=== PATIENT | female | born 1955 | race Caucasian/White ===

== ENCOUNTER 2018-11-11 13:10 | Inpatient (IN) | payer OTHER ==
[~2018-11-11] VITALS: Ht 154.9 cm; Wt 131.1 kg
--- NOTE | ~2018-11-11 | PR ---
[place], [place] PROGRESS NOTE NAME: AHMET LICEA UNIT #: [id number] ROOM: 411 DOCTOR: ELIZABETH BERTRAND MD,SAMANTA BIRTHDATE: [birth year] DOS: 11/14/2018 SUBJECTIVE: The patient seen and examined on 11/14/2018. She had a bronchoscopy done yesterday. The symptoms of cough have been decreased, but not completely resolved. The cough has been noted with small [place] expectoration in to chest. Shortness breath and wheezing, was improving. There was no chest pain. OBJECTIVE: VITAL SIGNS: Normal temperature, respiratory rate of 20, heart rate 70, blood pressure 156/67 in the afternoon. HEENT: Chronic obesity. Head was atraumatic. Eyes nonicterus. NECK: Supple. CARDIOVASCULAR: S1, S2 is audible. LUNGS: The patient was noted with decreased breath sounds bilaterally. Occasional wheezing. There were no crackles. ABDOMEN: Soft, obese, nontender. Bowel sounds present. EXTREMITIES: No acute edema. LABORATORY DATA: Culture of the bronchial washing preliminary noted with light growth of gram-negative bacilli, pending identification sensitivities. IMPRESSION: Acute exacerbation of chronic obstructive pulmonary disease, with coughing with gram-negative infection, pending identification sensitivities. PLAN OF TREATMENT: No change in antibiotic, monitor culture results, adjust the antibiotic tomorrow. Possible discharge consideration in the morning depends on the organism identification, therefore, could be treated with oral antibiotics. SAMANTA JOHNSON MD CM:PNTRANS [id number] SAMANTA BERTRAND MD 11/15/18 2313 interface
--- NOTE | ~2018-11-11 | PR ---
[place], [place] PROGRESS NOTE NAME: AHMET LICEA UNIT #: [id number] ROOM: 411 DOCTOR: ELIZABETH BERTRAND MD,SAMANTA BIRTHDATE: [birth year] DOS: 11/15/2018 SUBJECTIVE: She has been noted with partial reduction in the cough but still noted with incomplete resolution. The cough has been noted with small expectoration, shortness of breath has improved significantly. There were no symptoms of chest pain, fever or chills. OBJECTIVE: VITAL SIGNS: For the patient, which are recorded shows a normal temperature, respiratory rate 18, heart rate 71, blood pressure 144/57. The pulse oxygen saturation on room air 95% saturation. Chronic obesity. HEENT: Examination shows head was atraumatic. Eyes nonicterus. LUNGS: Noted free of any wheezing or crackles this morning. ABDOMEN: Soft, nontender. Bowel sounds present. EXTREMITIES: No acute edema. LABORATORY DATA: Culture of the bronchial washing was noted with light growth of Pseudomonas aeruginosa, which noted pansensitive organism including to fluoroquinolones. IMPRESSION: 1. The patient who has been currently noted stable at the present time with Pseudomonas aeruginosa. 2. The patient with a history of sarcoidosis. 3. Resolving bronchial asthma. PLAN OF TREATMENT: Oral corticosteroids, order fluoroquinolone for the patient as well upon discharge ciprofloxacin for 10 days. Outpatient followup to be scheduled in the office. SAMANTA JOHNSON MD CM:PNTRANS [id number] SAMANTA BERTRAND MD 11/15/18 2310 interface
--- NOTE | ~2018-11-11 | CON ---
[place], [place] REPORT OF CONSULTATION NAME: AHMET LICEA UNIT #: [id number] ROOM: 411 DOCTOR: SAMANTA MOTLEY MD BIRTHDATE: [birth year] DOS: 11/12/2018 REASON FOR CONSULTATION: Assess the patient for nonresolving exacerbation of bronchial asthma. HISTORY OF PRESENT ILLNESS: This is a 63-year-old white female patient with known history of pulmonary sarcoidosis with sleep apnea disorder and uncomplicated moderate persistent bronchial asthma, seen in my office on 10/29/2018. The patient has been reported ongoing respiratory symptom for the past several days. The symptoms have been noted excessive chest congestion, coughing, and wheezing and tightness in the chest. Shortness of breath was occurring with exertion. She has been seen in the office, was started on oral antibiotics as well as tapering prednisone and nebulized bronchodilators. The patient was also started on Mucinex. The cough has been noted severe, nonproductive. She has been taking the medication stated that symptoms have not been resolving. The patient continued to have similar symptoms with only partial improvement in the symptom. She came into the Emergency Room where she has been assessed and being hospitalized in the hospital for further medical management. The patient was still complaining of similar symptoms as previously noted on admission. Denies symptoms of chest pain, fever or chills. REVIEW OF SYSTEMS: CONSTITUTIONAL: Fatigue and tiredness reported. Denies symptoms of fever or chills. EYES: Denies any burning, redness, or tenderness. EAR, NOSE, THROAT SYMPTOMS: Denies sore throat, hoarseness, otalgia, postnasal drainage or epistaxis. CARDIOVASCULAR SYSTEM: Denies angina pain, edema, and pain of the lower extremities. GASTROINTESTINAL SYMPTOMS: Dysphagia, nausea, vomiting, diarrhea, abdominal pain, hematemesis, melena, or hematochezia. SKIN: Denies abnormal lesions or rashes. MUSCULOSKELETAL SYMPTOMS: No acute joint pain, redness, tenderness. CENTRAL NERVOUS SYSTEM: Denies symptoms of headache, diplopia or syncopal episodes. Remaining systems were reviewed with the patient, they were noted all negative. PAST MEDICAL HISTORY: 1. Uncomplicated moderate persistent bronchial asthma. 2. Gastroesophageal reflux. 3. Morbid obesity. 4. Hypothyroidism. 5. Sarcoidosis diagnosis was established in 2006 with mediastinoscopy. 6. Anxiety disorder. 7. Neurotic depression. 8. Intervertebral disk disease. 9. Restless legs syndrome. 10. Obstructive sleep apnea disorder. 11. History of congestive heart failure, diastolic dysfunction. [place], [place] REPORT OF CONSULTATION NAME: AHMET LICEA UNIT #: [id number] ROOM: [facility] DOCTOR: SAMANTA MOTLEY MD BIRTHDATE: [birth year] 12. Hypercholesterolemia. 13. Hypothyroidism. SOCIAL HISTORY: She is , has 2 children, and lives at home. Denies alcohol or illicit drug use or any tobacco use. PAST SURGICAL HISTORY: 1. Reported as mediastinoscopy on 05/09/2007. 2. Right total knee replacement. 3. Laparoscopic cholecystectomy. FAMILY HISTORY: Father at age of 80 due to complication of myocardial infarction. Mother living, 70 years old with history of cancer. CURRENT MEDICATIONS: Administered started from yesterday use of Lovenox for DVT prophylaxis, Tessalon Perles, Solu-Medrol 40 mg every 8 hours, DuoNeb every 4 hours, Zithromax, Rocephin and other p.r.n. medications. DRUG ALLERGIES: The patient noted as no known drug allergies. PHYSICAL EXAMINATION: GENERAL: This is a 63-year-old female who was noted currently awake and alert without acute distress. Height of 5 feet 1 inch, weight of 289 pounds, BMI 54.6. VITAL SIGNS: Normal temperature, respirations 18-20, heart rate of 92-105, blood pressure 130/52-128/72. Pulse oxygen saturation recorded as 94% on half liter nasal cannula. HEAD, EYES, EARS, NOSE, AND THROAT: Chronic obesity. Head was atraumatic. Eyes nonicterus. NECK: Supple. CARDIOVASCULAR SYSTEM: S1, S2 audible. LUNGS: Noted without any crackles. Expiratory wheezing. Breaths are normal. Moderate decreased. ABDOMEN: Soft with chronic obesity. Bowel sounds present. EXTREMITIES: Without acute edema. MUSCULOSKELETAL: Noted without any acute deformities. CENTRAL NERVOUS SYSTEM: Cranial nerves 2-12 were intact. LABORATORY AND DIAGNOSTIC DATA: The lactic acid yesterday noted normal. CBC that was done yesterday noted as normal CBC excep eosinophils of 5.3%. PT/PTT were normal. CMP of 11/11/2018, normal BUN and creatinine. D-dimer minimally elevated at 6.9 yesterday. Chest x-ray does not show any acute pulmonary infiltration yesterday. Influenza A and B, nasal washing antigen negative. CBC this morning noted a normal CBC. BMP this morning, glucose 207, BUN normal, creatinine was normal. CT of the chest that was done yesterday does not show any acute pulmonary infiltration as well. There was no evidence of pulmonary embolism. CTA the chest was done in the Emergency Room. Assessment of the mediastinal window was noted with lymphadenopathy with known diagnosis of sarcoidosis, but they were not noted large. [place], [place] REPORT OF CONSULTATION NAME: AHMET LICEA UNIT #: [id number] ROOM: 411 DOCTOR: SAMANTA MOTLEY MD BIRTHDATE: [birth year] IMPRESSION: 1. The patient will be currently admitted to the hospital noted failed outpatient treatment for acute exacerbation of bronchial asthma, noted with eosinophilic type bronchial asthma with nonresolving respiratory symptoms suspicion of obstruction of the mucus plug in the lungs that has not been improving. Possibly superimposed acute bacterial infection not responding to treatment would be considered as well. 2. Chronic morbid obesity. 3. History of sarcoidosis. 4. Obstructive sleep apnea disorder. 5. Restless legs syndrome. 6. Congestive heart failure, diastolic dysfunction. PLAN OF MANAGEMENT: Continue bronchodilators, oxygen supplementation and antibiotics at this time as in progress. Therapeutic bronchoscopy was assessed and planned to be done tomorrow morning. Bronchodilators otherwise to be continued same frequency. Oxygen supplementation necessary. Maintain pulse ox 92% or greater. She could use her CPAP from the home for the management of sleep apnea disorder. All other previous treatment with additional change in treatment recommended based on progression of the illness. Sarcoidosis is asymptomatic and not in acute disease at this time. Thanks for allowing me to participate in care of this patient. SAMANTA JOHNSON MD CM:CONSTR:REPORT OF CONSULTATION 1047 11/12/18 1301 interface
--- NOTE | ~2018-11-11 | EKG ---
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
--- NOTE | ~2018-11-11 | PR ---
[place], [place] PROGRESS NOTE NAME: AHMET LICEA UNIT #: [id number] ROOM: 411 DOCTOR: ELIZABETH BERTRAND MDSAMANTA BIRTHDATE: [birth year] DOS: 11/13/2018 PULMONARY PROGRESS NOTE SUBJECTIVE: The patient was noted comfortable at this time, resting on the bed. She is n.p.o. past night for bronchoscopy, still noted a cough, which remains persistent. She was complaining as well. Denies symptoms of fever or chills. Denies symptoms of hemoptysis, nausea, vomiting, diarrhea or any abdominal pain. Denies symptoms of fever or chills. Denies any symptoms of edema or pain of the lower extremities. The remaining systems reviewed, there was noted all negative. OBJECTIVE: VITAL SIGNS: For the patient, which have been recorded shows the blood pressure as 129/65, heart rate of 76-103, respiratory rate 20-18, temperature normal. HEENT: Examination shows head was atraumatic. Eyes nonicterus. NECK: Supple. CARDIOVASCULAR: S1, S2 is audible. LUNGS: The patient was noted with decreased breath sounds with the expiratory wheezing. There were no crackles. ABDOMEN: Soft and obese. EXTREMITIES: Noted chronic obesity. VISIBLE SKIN: No lesions or rashes. MUSCULOSKELETAL: Without acute deformities. CENTRAL NERVOUS SYSTEM: Cranial nerves 2-12 intact. LABORATORY DATA: Culture of the urine showed no bacterial growths. Echocardiogram of the patient was also performed yesterday. The assessment was done by Dr. Quintanilla. It shows left ventricular ejection fraction of 65%-70% with grade 1 diastolic dysfunction. IMPRESSION: 1. Ongoing acute exacerbation of bronchial asthma, acute bronchitis, nonproductive cough, not resolving. History of sarcoidosis. Mild diastolic dysfunction was noted for the patient with echocardiogram. 2. The patient with morbid obesity. 3. History of sarcoidosis as well. PLAN OF THERAPY: Proceed with fibrobronchoscopy. No changes in the medical plan of management at this time. Continue current dose of plan for this patient as previously with steroids, bronchodilators, and other therapies. Additional treatment changes will be ordered based on the progression of the illness. [place], [place] PROGRESS NOTE NAME: AHMET LICEA UNIT #: [id number] ROOM: 411 DOCTOR: SAMANTA MOTLEY MD BIRTHDATE: [birth year] SAMANTA JOHNSON MD CM:PNTRANS [id number] SAMANTA BERTRAND MD 11/25/18 1045 interface
--- NOTE | ~2018-11-11 | PROC NOTE ---
[place], [place] PROCEDURE NOTE NAME: AHMET LICEA UNIT #: [id number] ROOM: 411 DOCTOR: ELIZABETH BERTRAND MD,SAMANTA BIRTHDATE: [birth year] DOS: 11/13/2018 PROCEDURE: Bronchoscopy. PREOPERATIVE DIAGNOSES: Persistent nonresolving cough with maximum medical management, history of bronchial asthma, sarcoidosis. POSTOPERATIVE DIAGNOSES: The patient with acute tracheobronchitis, mild impaction of mucus cleared in endobronchial tree bilaterally. PROCEDURE DESCRIPTION: Informed consent obtained from the patient. She was brought to the OR and placed in supine position. Conscious sedation administered by Anesthesia Department. After achieving proper sedation, airway introduced in the mouth. Bronchoscope advanced to the airway into laryngeal area. Epiglottis and vocal cord seen. Vocal cord was moving symmetrical movements. Bronchoscope advanced to vocal cord and tracheal lumen. The tracheal lumen was noted without any acute abnormality except small amount of secretion present, which was mucoid suctioned out clearly with the help of normal saline. The colby noted sharp. The right upper, right middle, right lower, left upper, lingula, lower lobe bronchi were all examined. The mucus was present small amount. The patient endobronchial tree bilaterally suctioned out with normal saline wash. Procedure was tolerated by the patient except transient hypoxia, treated with withdrawal of the bronchoscope and additional supplementation of oxygen. SAMANTA JOHNSON MD CM:PROCNOTE:PROCEDURE NOTE 1035 [id number] SAMANTA BERTRAND MD
[2018-11-11 13:11] VITALS: BP 130/62
[2018-11-11 14:16] LABS: BASO # 0.1 10*3/uL (0.0-0.1); BASO % 0.7 % (0.0-1.0); EOS # 0.4 10*3/uL (0.0-0.4); EOS % 5.3 % (1.0-4.0); HEMATOCRIT 39.8 % (37.0-47.0); HEMOGLOBIN 12.9 g/dl (12.0-16.0); LYMPH # 1.2 10*3/uL (1.3-4.4); LYMPH % 17.6 % (27.0-41.0); MEAN CELL VOLUME 92.8 fl (81.0-99.0); MEAN CORPUSCULAR HGB 30.1 pg (27.0-31.0); MEAN CORPUSCULAR HGB CONC 32.4 g/dl (33.0-37.0); MEAN PLATELET VOLUME 10.4 fl (9.6-12.3); MONO # 0.5 10*3/uL (0.1-1.0); NEUT # 4.9 10*3/uL (2.3-7.9); NEUT % 69.3 % (47.0-73.0); PLATELET COUNT AUTOMATED 186 10*3/uL (130-400); RED BLOOD COUNT 4.29 10*6/uL (4.10-5.10); RED CELL DISTRI WIDTH 14.6 % (0-14.5)
[2018-11-11 14:26] LABS: ACT PARTIAL THROMBO TIME 25.2 SECONDS (20.8-31.5)
[2018-11-11 14:34] LABS: ALBUMIN 3.3 gm/dl (3.1-4.5); ALKALINE PHOSPHATASE 56 U/L (45-117); BUN 18 mg/dl (7-24); CHLORIDE 111 mmol/L (98-107); CREATININE 0.92 mg/dL (0.55-1.02); POTASSIUM 4.2 mmol/L (3.5-5.1); SGOT/AST 23 IU/L (3-35); SGPT/ALT 26 U/L (12-78); SODIUM 142 mmol/L (136-145); TOTAL PROTEIN 7.3 gm/dL (6.4-8.2)
[2018-11-11 14:35] LABS: TROPONIN I < 0.015 ng/ml (<0.045)
[2018-11-11 15:11] VITALS: BP 128/72
[2018-11-11 15:32] LABS: BILIRUBIN NEGATIVE (NEGATIVE); BLOOD NEGATIVE (NEGATIVE); CLARITY CLEAR (CLEAR); COLOR YELLOW (YELLOW); GLUCOSE NEGATIVE (NEGATIVE); KETONE NEGATIVE (NEGATIVE); LEUKO ESTERASE NEGATIVE (NEGATIVE); NITRITE NEGATIVE (NEGATIVE); UROBILINOGEN 0.2 E.U./dl (0.2-1.0)
[2018-11-11 15:37] LABS: RBC 0-2 rbc/hpf (0-2); WBC 0-2 wbc/hpf (0-5)
[2018-11-11 15:38] LABS: BACTERIA 1+; MUCOUS TRACE
--- NOTE | 2018-11-11 15:52 | NUR ---
PT LEFT UNIT WITH TECH VIA CART FOR CTA OF CHEST.
--- NOTE | 2018-11-11 18:40 | NUR ---
A 63, admitted to , under the services of XOCHITL Villa DO with a diagnosis of COPD EXACERBATION. Chief complaint is SON. Patient arrived via bed from ER. Monitor applied. Initial assessment completed. Vital signs taken and recorded. XOCHITL VILLA DO notified of admission to the unit. Orders received. See assessment for past medical history, medications and allergies. Patient and/or family oriented to unit. [facility] visitation policy reviewed. Clothing/patient valuable form completed. LANNY LARIOS
[2018-11-11 18:43] VITALS: BP 132/68
[2018-11-11] MEDS ORDERED: Ventolin 02.5 MG/3 M INH (18:59)
[2018-11-11] MEDS ORDERED: Percocet 325 MG1 TAB PO (18:59)
[2018-11-11] MEDS ORDERED: ROPINIROLE HYDRO3 MG PO (19:00)
[2018-11-11] MEDS ORDERED: TOPIRAMATE50 M2 PO (19:00)
[2018-11-11] MEDS ORDERED: LOSARTAN POTAS100 M1 PO (19:00)
[2018-11-11] MEDS ORDERED: PROPRANOLOL HCL10 MG PO (19:01)
[2018-11-11] MEDS ORDERED: MAGNESIUM OXID400 MG PO (19:01)
[2018-11-11] MEDS ORDERED: LEVOTHYROXINE150 MCG PO (19:01)
[2018-11-11] MEDS ORDERED: GABAPENTIN400 MG PO (19:02)
[2018-11-11] MEDS ORDERED: MELOXICAM15 MG PO (19:02)
[2018-11-11] MEDS ORDERED: TRAZODONE100 MG PO (19:03)
[2018-11-11] MEDS ORDERED: SERTRALINE HYD100 MG PO (19:03)
[2018-11-11] MEDS ORDERED: METFORMIN HYDR500 MG PO (19:03)
[2018-11-11] MEDS ORDERED: IRON325 M1 PO (19:05)
[2018-11-11] MEDS ORDERED: ALDACTONE50 M1 PO (19:05)
--- NOTE | 2018-11-11 19:15 | NUR ---
MED REC VERIFIED WITH PATIENT AND UPDATED PER PT LIST
--- NOTE | 2018-11-11 19:23 | NUR ---
ATTEMPTED TO CALL ELIZABETH WITH NEW CONSULT. NO ANSWER WILL RETRY.
--- NOTE | 2018-11-11 19:25 | NUR ---
DR. JOHNSON CALLED BACK. NO NEW ORDERS RECEIVED.
[2018-11-11 20:00] VITALS: BP 124/54
--- NOTE | 2018-11-11 21:37 | NUR ---
PATIENT C/O HEADACHE. MEDICATED WITH PRN TYLENOL. RATES 05/24. WILL CHECK EFFECTIVENESS.
[2018-11-12] VITALS: BP 106/42
--- NOTE | 2018-11-12 00:15 | NUR ---
ADAM C/O SOB AT REST. PULSE OX 88-89% ON RA. PUT ON 2.5L NC. PATIENT IS NOW STATING 96%.
[2018-11-12 04:42] LABS: BASO % 0.2 % (0.0-1.0); EOS % 0.2 % (1.0-4.0); HEMATOCRIT 39.8 % (37.0-47.0); HEMOGLOBIN 12.3 g/dl (12.0-16.0); LYMPH # 0.4 10*3/uL (1.3-4.4); LYMPH % 7.9 % (27.0-41.0); MEAN CELL VOLUME 93.2 fl (81.0-99.0); MEAN CORPUSCULAR HGB 28.8 pg (27.0-31.0); MEAN CORPUSCULAR HGB CONC 30.9 g/dl (33.0-37.0); MEAN PLATELET VOLUME 10.6 fl (9.6-12.3); MONO # 0.1 10*3/uL (0.1-1.0); MONO % 1.6 % (3.0-9.0); NEUT % 89.6 % (47.0-73.0); PLATELET COUNT AUTOMATED 171 10*3/uL (130-400); RED BLOOD COUNT 4.27 10*6/uL (4.10-5.10); RED CELL DISTRI WIDTH 14.5 % (0-14.5); WHITE BLOOD COUNT 5.6 10*3/uL (4.8-10.8)
[2018-11-12 05:11] LABS: BUN 19 mg/dl (7-24); CHLORIDE 110 mmol/L (98-107); CHOLESTEROL 156 mg/dL (<200); CREATININE 1.06 mg/dL (0.55-1.02); FREE T4 1.08 ng/dl (0.76-1.46); HDL CHOLESTEROL 53 mg/dl (40-60); LDL CHOLESTEROL 85 mg/dL (9-159); PHOSPHOROUS 2.7 mg/dL (2.5-4.9); POTASSIUM 4.2 mmol/L (3.5-5.1); SODIUM 142 mmol/L (136-145); TRIGLYCERIDES 91 mg/dl (<150); VLDL CHOLESTEROL 18 mg/dL (6-40)
[2018-11-12 05:17] LABS: THYROID STIM HORMONE (HS) 0.112 uIU/ml (0.358-4.75)
[2018-11-12 06:54] LABS: VITAMIN D, 25-HYDROXY 16.5 ng/mL (30-100)
[2018-11-12 08:00] VITALS: BP 130/52
--- NOTE | 2018-11-12 09:32 | NUR ---
DR. CARDENAS NOTIFIED THAT PATIENTS MED REQ IS UPDATED.
[2018-11-12 12:00] VITALS: BP 146/70
[2018-11-12 16:00] VITALS: BP 134/69
[2018-11-12 20:00] VITALS: BP 121/54
[2018-11-13] VITALS (8 sets, daily range): BP systolic 100–154; BP diastolic 54–94
--- NOTE | 2018-11-13 00:25 | NUR ---
[facility] CALLED STATING THEY HAVE A ORDER TO READ THE CONTRAST ECHO. PER DR. LUNA ECHO HAS ALREADY BEEN READ BY DR. REYEZ AND DOES NOT NEED READ.
--- NOTE | 2018-11-13 01:33 | NUR ---
24 HR chart check completed.
--- NOTE | 2018-11-13 11:05 | NUR ---
Lead Game Designer in to talk to patient. Patient states lives at home with . There are few steps in the home. Physician: sandoval bonds Pharmacy: [facility] services: none Patient's level of ADLs: MINIMAL ASSIST Patient has working utilities: all working DME: cpap Follow-up physician's appointment after d/c: will be made by hospitalist nurse director upon discharge Does patient want to access PORTAL?: no Discharge plan discussed with patient, patient lives at home. she states she gets around fine, patient states she will be going home when able. discussed with her VNA and she declines any services at this time, case management will follow. AARON MILLER
[2018-11-13 15:08] LABS: MYCOPLASMA PNEUMONIAE IGG 112 U/mL (0-99); MYCOPLASMA PNEUMONIAE IGG <100 U/mL (0-99); MYCOPLASMA PNEUMONIAE IGM <770 U/mL (0-769)
--- NOTE | 2018-11-13 20:08 | NUR ---
pt complain of generalized pain, tylenol given.
[2018-11-14] VITALS: BP 141/75
--- NOTE | 2018-11-14 04:43 | NUR ---
24 HR chart check completed.
--- NOTE | 2018-11-14 05:35 | NUR ---
PATIENT MEDICATED WITH TESSALON PEARLES FOR COUGH. WILL MONITOR FOR EFFECTIVENESS. CALL LIGHT IN REACH.
[2018-11-14 08:00] VITALS: BP 136/68
--- NOTE | 2018-11-14 09:00 | NUR ---
case management visits with patient, patient states she is feeling somewhat better, she states she will be going home when able and denies any home needs
[2018-11-14 12:00] VITALS: BP 143/66
--- NOTE | 2018-11-14 15:10 | NUR ---
DR CARDENAS NOTIFIED OF C/O BACK PAIN AND REQUESTING PERCOCET. THIS NURSE NOTIFIED HE THAT IT IS ORDERED BID AND FIRST DOSE WAS GIVEN AT 9AM. HE STATES OK TO GIVE 2ND DOSE NOW.
--- NOTE | 2018-11-14 15:28 | NUR ---
MEDICATED WITH PERCOCET PER PRN ORDER FOR COMPLAINTS OF 9/10 BACK AND NECK PAIN. WILL MONITOR FOR EFFECTIVENESS.
[2018-11-14 16:00] VITALS: BP 144/87
[2018-11-14 16:09] LABS: ACID FAST SPEC PROCESSING Concentration (.)
[2018-11-14 20:00] VITALS: BP 156/87
--- NOTE | 2018-11-14 22:01 | NUR ---
PT C/O HEADACHE AND COUGH. TYLENOL AND TESSALON PERLES GIVEN AT THIS TIME. WILL MONITOR FOR EFFECTIVENESS. ALL OTHER HS MEDICATION TAKEN WITH EASE BY PT. BLOOD SUGAR OBTAINED, 127. NO COVERAGE GIVEN PER ORDERS. RESPIRATIONS EASY AND UNLABORED ON ROOM AIR. CALL LIGHT IN REACH.
--- NOTE | 2018-11-14 23:00 | NUR ---
TYLENOL AND TESSALON PERLES EFFECTIVE PER PT.
[2018-11-15] VITALS: BP 135/54
[2018-11-15 00:05] LABS: PARAINFLUENZA 3 CF 1:32 (Neg:<1:8)
[2018-11-15 06:51] LABS: BASO % 0.1 % (0.0-1.0); EOS % 0.3 % (1.0-4.0); HEMATOCRIT 40.7 % (37.0-47.0); HEMOGLOBIN 13.2 g/dl (12.0-16.0); LYMPH # 1.2 10*3/uL (1.3-4.4); LYMPH % 11.8 % (27.0-41.0); MEAN CELL VOLUME 91.1 fl (81.0-99.0); MEAN CORPUSCULAR HGB 29.5 pg (27.0-31.0); MEAN CORPUSCULAR HGB CONC 32.4 g/dl (33.0-37.0); MEAN PLATELET VOLUME 10.4 fl (9.6-12.3); MONO # 0.6 10*3/uL (0.1-1.0); MONO % 5.7 % (3.0-9.0); NEUT # 8.1 10*3/uL (2.3-7.9); NEUT % 81.3 % (47.0-73.0); PLATELET COUNT AUTOMATED 183 10*3/uL (130-400); RED BLOOD COUNT 4.47 10*6/uL (4.10-5.10); WHITE BLOOD COUNT 9.9 10*3/uL (4.8-10.8)
[2018-11-15 07:00] LABS: CREATININE 0.87 mg/dL (0.55-1.02)
[2018-11-15 08:00] VITALS: BP 151/82
--- NOTE | 2018-11-15 09:00 | NUR ---
case mangement visits with patient, patient denies any home needs
[2018-11-15 12:00] VITALS: BP 133/56; BP 144/57
[2018-11-15] MEDS ORDERED: CIPRO500 MG PO (13:37)
[2018-11-15] MEDS ORDERED: ROBITUSSIN DM 101 OZ PO (13:37)
--- NOTE | 2018-11-15 13:48 | NUR ---
[facility] Discharge instructions reviewed with patient/family. Patient receptive and verbalizes understanding. Follow-up care arranged. Written instructions given to patient/family. LAURIE BILLS
[2018-12-25 09:07] LABS: ACID FAST CULTURE Negative (.)
== END 2018-11-15 13:45 | disposition home or self-care (01) | DRG 190 ==
LOC: ED 13:10 → 4E 18:09 → EDHOLD 18:09 → 4E 18:26
PROVIDERS: Emergency Medicine; Internal Medicine; Internal Medicine Critical Care Medicine; ADMIT Internal Medicine
PROC: 0BC98ZZ Extirpation of Matter from Lingula Bronchus, Via Natural or Artificial Opening Endoscopic (ICD-10-PCS; principal; 2018-11-13)
PROC: 0BC48ZZ Extirpation of Matter from Right Upper Lobe Bronchus, Via Natural or Artificial Opening Endoscopic (ICD-10-PCS; 2018-11-13)
PROC: 0BC88ZZ Extirpation of Matter from Left Upper Lobe Bronchus, Via Natural or Artificial Opening Endoscopic (ICD-10-PCS; 2018-11-13)
PROC: 0BC58ZZ Extirpation of Matter from Right Middle Lobe Bronchus, Via Natural or Artificial Opening Endoscopic (ICD-10-PCS; 2018-11-13)
PROC: 0BC38ZZ Extirpation of Matter from Right Main Bronchus, Via Natural or Artificial Opening Endoscopic (ICD-10-PCS; 2018-11-13)
PROC: 0BC68ZZ Extirpation of Matter from Right Lower Lobe Bronchus, Via Natural or Artificial Opening Endoscopic (ICD-10-PCS; 2018-11-13)
PROC: 0BCB8ZZ Extirpation of Matter from Left Lower Lobe Bronchus, Via Natural or Artificial Opening Endoscopic (ICD-10-PCS; 2018-11-13)
PROC: 0BC18ZZ Extirpation of Matter from Trachea, Via Natural or Artificial Opening Endoscopic (ICD-10-PCS; 2018-11-13)
DX: J44.1 Chronic obstructive pulmonary disease with (acute) exacerbation (principal); J18.9 Pneumonia, unspecified organism; J45.901 Unspecified asthma with (acute) exacerbation; E44.0 Moderate protein-calorie malnutrition; D68.9 Coagulation defect, unspecified; I50.30 Unspecified diastolic (congestive) heart failure; T17.490A Other foreign object in trachea causing asphyxiation, initial encounter; Z68.43 Body mass index [BMI] 50.0-59.9, adult; J44.0 Chronic obstructive pulmonary disease with (acute) lower respiratory infection; K31.84 Gastroparesis; E66.01 Morbid (severe) obesity due to excess calories; Z88.5 Allergy status to narcotic agent; F41.9 Anxiety disorder, unspecified; M47.9 Spondylosis, unspecified; K21.9 Gastro-esophageal reflux disease without esophagitis; G25.81 Restless legs syndrome; D86.9 Sarcoidosis, unspecified; G47.33 Obstructive sleep apnea (adult) (pediatric); Z83.3 Family history of diabetes mellitus; Z82.49 Family history of ischemic heart disease and other diseases of the circulatory system; E11.43 Type 2 diabetes mellitus with diabetic autonomic (poly)neuropathy; E55.9 Vitamin D deficiency, unspecified; J20.9 Acute bronchitis, unspecified; I11.0 Hypertensive heart disease with heart failure; E78.00 Pure hypercholesterolemia, unspecified; Z90.49 Acquired absence of other specified parts of digestive tract; Z96.651 Presence of right artificial knee joint; X58.XXXA Exposure to other specified factors, initial encounter; Y93.89 Activity, other specified; Y92.89 Other specified places as the place of occurrence of the external cause; Y99.8 Other external cause status; Z79.84 Long term (current) use of oral hypoglycemic drugs

== ENCOUNTER 2019-03-13 11:24 | Inpatient (IN) | payer OTHER ==
[2019-03-13] VITALS (9 sets, daily range): BP systolic 135–175; BP diastolic 55–97
[~2019-03-13] VITALS: Ht 154.9 cm; Wt 126.6 kg
--- NOTE | ~2019-03-13 | CON ---
[place], [place] REPORT OF CONSULTATION NAME: AHMET LICEA UNIT #: [id number] ROOM: 416 DOCTOR: ELIZABETH BERTRAND MDSAMANTA BIRTHDATE: [birth year] DOS: 03/13/2019 PULMONARY CONSULTATION, EVALUATION AND MANAGEMENT The patient is independently seen and examined in jnkh-kg-[id number] encounter. History was confirmed. Physical examination was performed. Labs were reviewed independently. The radiology data was also reviewed. Note done by the medical manager was approved. Assessment and management for today's visit was personally completed. HISTORY OF PRESENT ILLNESS: The patient presented to the Emergency Room as the patient has been noted with increased respiratory symptoms that started about 2 weeks ago. She has contacted my office and was prescribed Zithromax for acute bronchitis symptoms as an outpatient. The patient has taken the medication. The patient stated it has not been working, with increased respiratory symptoms reported. The cough has been noted with progressive increase. The cough is noted as dry. She also reported symptoms of increased shortness of breath, tightness in the chest, and wheezing. There were no symptoms of chest pain reported. The symptoms have been noted with gradual progression. There were no symptoms of hemoptysis reported. The patient was also stating temperature elevation to 101 degrees Fahrenheit as well. REVIEW OF SYSTEMS: Completed by the medical manager as well. EXTREMITIES: Edema of the lower extremities noted as 2+ bilaterally. CARDIOVASCULAR: There were no symptoms of palpitation reported. No symptoms of anginal pain. PAST MEDICAL HISTORY: 1. Uncomplicated moderate persistent bronchial asthma. 2. Gastroesophageal reflux. 3. Morbid obesity. 4. Sarcoidosis, 2007, lymph node enlargement. 5. Hypothyroidism. 6. General anxiety disorder. 7. Neurotic depression. 8. Intervertebral disc disease. 9. Restless legs syndrome. 10. Obstructive sleep apnea disorder with nonadherence with treatment. 11. Congestive heart failure, diastolic dysfunction. 12. Hypercholesterolemia. PAST SURGICAL HISTORY: 1. Mediastinoscopy on 05/09/2007. 2. Right total knee replacement. 3. Laparoscopic cholecystectomy. SOCIAL HISTORY: The patient is , has 2 children, lives at home. Denies history of alcohol use or illicit drug use. FAMILY HISTORY: Father passed at the age of 8080 years old with complications of [place], [place] REPORT OF CONSULTATION NAME: AHMET LICEA UNIT #: [id number] ROOM: [facility] DOCTOR: ELIZABETH BERTRAND MD,SAMANTA BIRTHDATE: [birth year] myocardial infarction. Mother is living, 70 years old, with a history of cancer. MEDICATIONS: Which were currently administered are use of the Lovenox for DVT prophylaxis, Solu-Medrol 40 mg q. eight hours, DuoNeb q. six hours, Zithromax, IV Rocephin, and other p.r.n. meds. DRUG ALLERGY HISTORY: NOTED : 1. MORPHINE, CAUSING HIVES. 2. CYMBALTA, WITH DISORIENTATION. PHYSICAL EXAMINATION: GENERAL: A 64-year-old white female patient, currently noted to be awake and alert this morning of assessment. Height was 5 feet 1 inch, weight of 279 pounds, BMI 52.7. VITAL SIGNS: Normal temperature, respiratory rate ranging between 16-26, heart rate 78-87, blood pressure 175/87-162/90. Pulse oxygen saturation at rest on room air was 93% saturation. HEENT: Examination shows head is atraumatic. Eyes nonicterus. Severe decreased oropharyngeal space, high tongue base, crowding of soft tissue structures. NECK: Supple. CARDIOVASCULAR: S1 and S2 is audible. LUNGS: Noted with bilateral diffuse expiratory wheezing was noted. ABDOMINAL: Chronic obesity. Bowel sounds present. No tenderness. EXTREMITIES: Noted with 2+ pitting edema. VISIBLE SKIN: No lesions or rashes. CENTRAL NERVOUS SYSTEM: Cranial nerves 2 through 12 intact. No focal deficit. MUSCULOSKELETAL: Without any acute deformities. LABORATORY DATA: CBC that was noted of 03/13/2019 - WBC count 12.8, hemoglobin and hematocrit normal, platelet count normal. PT/INR noted as normal. CMP that was done on 03/13/2019 - BUN 29, creatinine 1.07. CMP noted as normal. Arterial blood gas that was done today - pH of 7.38, pCO2 of 35, pO2 of 63 after my initial assessment. Troponin noted as normal. DIAGNOSTIC DATA: Chest x-ray, 2-view, which was done in the Emergency Room, reviewed from the PACS images, noted without any acute abnormalities. IMPRESSION: The patient who has been currently admitted to the hospital noted with: 1. Acute exacerbation of bronchial asthma, failed outpatient treatment. 2. The patient with obstructive sleep apnea, nonadherence with treatment. 3. Congestive heart failure, diastolic or systolic dysfunction at this time was unknown. 4. The patient with chronic obesity. 5. History of sarcoidosis, which is noted stable and in remission at the present time and inactive. 6. Multiple other medical problems as noted in past history. [place], [place] REPORT OF CONSULTATION NAME: AHMET LICEA UNIT #: [id number] ROOM: 416 DOCTOR: ELIZABETH BERTRAND MD,SAMANTA BIRTHDATE: [birth year] PLAN OF MANAGEMENT: The patient agreed to use the CPAP/BiPAP from home at nighttime. She would be continued on Solu-Medrol. The patient will be ordered a diuretic for improvement of the edema of the lower extremities. The bronchodilators to be continued. Obtain an echocardiogram to assess the cardiovascular functions. Other additional treatment changes will be made based on progression of the illnesses. Thank you for allowing me to participate in the care of this patient. SAMANTA JOHNSON MD CM:CONSTR:REPORT OF CONSULTATION 20 03/14/19 0806 interface
--- NOTE | ~2019-03-13 | EKG ---
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
--- NOTE | ~2019-03-13 | CON ---
[place], [place] REPORT OF CONSULTATION NAME: AHMET LICEA UNIT #: [id number] ROOM: 416 DOCTOR: SHANNAN CLINE DO BIRTHDATE: [birth year] DOS: 03/13/2019 PULMONARY CONSULTATION NOTE REASON FOR CONSULTATION: Exacerbation of bronchial asthma. The consultation was requested by the hospitalist service. HISTORY OF PRESENT ILLNESS: A 64-year-old female with known history of pulmonary sarcoidosis and sleep apnea. The patient states that she has been short of breath since 03/01/2019. The patient states that she was given azithromycin and steroids. The patient states that this has not helped. The patient states that she has a productive cough with green sputum. The patient states she has felt sweaty and warm during this time and reports a fever at home of 101 degrees Fahrenheit. The patient denies any hemoptysis. The patient states that her bilateral lower extremities have been swelling more over the past few days. The patient denies any chest pains, nausea or vomiting. REVIEW OF SYSTEMS: GENERAL: The patient reports fevers. Denies chills, weight loss or weight gain. HEENT: The patient denies vision changes, throat pain, ear pain, changes in hearing, nose pain or epistaxis. CARDIOVASCULAR: The patient denies palpitations or diaphoresis. The patient states that when coughing, her chest feels like it is burning at times, and the patient reports bilateral lower extremity edema. RESPIRATORY: The patient reports shortness of breath, cough, wheezing, dyspnea on exertion, sputum production and the patient denies hemoptysis, paroxysmal nocturnal dyspnea and stridor. ABDOMEN: The patient denies abdominal pain, nausea, vomiting, diarrhea or loss of appetite. GENITOURINARY: The patient denies dysuria, hematuria, increased frequency or urgency. NEUROLOGIC: The patient denies dizziness or syncope. SKIN: The patient denies any rashes, lesions or ulcers. PAST MEDICAL HISTORY: 1. Agoraphobia. 2. Anxiety. 3. Cervical spine arthritis. 4. CKD stage 3. 5. COPD. 6. Depression. 7. Diabetes. 8. Essential hypertension. 9. Fibromyalgia. 10. Gastroparesis. 11. GERD. 12. Hypothyroidism. 13. Insomnia. [place], [place] REPORT OF CONSULTATION NAME: AHMET LICEA UNIT #: [id number] ROOM: [facility] DOCTOR: THERESA SHANNAN ROSSI BIRTHDATE: [birth year] 14. Morbid obesity. 15. Restless leg syndrome. 16. Sarcoidosis. 17. Sleep apnea. 18. Vitamin D deficiency. PAST SURGICAL HISTORY: Total knee arthroplasty. SOCIAL HISTORY: The patient does not drink alcohol, smoke or use illicit drugs. FAMILY HISTORY: The patient's father from an CA at the age of 83, also had a history of diabetes. The patient's mother from complications related to diabetes at age 79. ALLERGIES: THE PATIENT IS ALLERGIC TO DULOXETINE AND MORPHINE. HOME MEDICATIONS: The patient is on Celebrex, Prozac, Advair, Lasix, gabapentin, DuoNeb, levothyroxine, losartan, magnesium, meloxicam, metformin, oxycodone, acetaminophen, prednisone, Requip, topiramate and trazodone. PHYSICAL EXAMINATION: VITAL SIGNS: The patient's temperature is 97.6, pulse 82, respiratory rate 16, blood pressure 160/95. The patient is 93% on room air. HEENT: Normocephalic, atraumatic. Eyes nonicteric. NECK: Supple, nontender, trachea midline. CARDIOVASCULAR: S1, S2 audible. LUNGS: Expiratory wheezing bilaterally, decreased breath sounds bilaterally. ABDOMEN: Soft, nontender. Bowel sounds are present, obese. EXTREMITIES: 2+ bilateral edema to the lower extremities. No clubbing or cyanosis. MUSCULOSKELETAL: Without any acute deformities. CENTRAL NERVOUS SYSTEM: Cranial nerves 2-12 grossly intact. No focal neurologic deficits. LABORATORY DATA: White count 12.8, hemoglobin 13.3, platelets are 218. Sodium 143, potassium 4.5, chloride 110, carbon dioxide 26, creatinine 1.07, BUN 29. Lactic acid was noted to be 2. Troponins were negative. ABG showed pH of 7.38, pCO2 of 35.4, pO2 of 63.2, HCO3 of 20.7. Chest x-ray showed no acute pathology. IMPRESSION: 1. Acute hypoxic respiratory failure. 2. Failure of outpatient treatment of bronchial asthma. 3. Sarcoidosis. 4. Morbid obesity. 5. Obstructive sleep apnea. 6. Restless leg syndrome. 7. Heart failure, preserved ejection fraction. [place], [place] REPORT OF CONSULTATION NAME: AHMET LICEA UNIT #: [id number] ROOM: 416 DOCTOR: SHANNAN CLINE DO BIRTHDATE: [birth year] PLAN: Continue bronchodilators, oxygen supplementation and antibiotics at this time. Hold IV fluids as the patient has some signs of overload at this time. ABGs showed hypoxemia, oxygen supplementation with a goal of 93% or greater by pulse oximetry. The patient should bring her CPAP machine for home uses. Any other treatment will be based on progression of illness. Robert Cline DO SAMANTA JOHNSON MD CM:CONSTR:REPORT OF CONSULTATION 1749 03/14/19 0449 interface
--- NOTE | ~2019-03-13 | PR ---
[place], [place] PROGRESS NOTE NAME: AHMET LICEA UNIT #: [id number] ROOM: 416 DOCTOR: SAMANTA MOTLEY MD BIRTHDATE: [birth year] DOS: 03/15/2019 PULMONARY PROGRESS NOTE SUBJECTIVE: The patient was noted comfortable at this time, sitting on the chair this morning. She has reported reduction in respiratory symptom last 24 hours. Shortness breath, cough and other symptom of the patient has been decreased significantly. Denies symptoms of fever or chills stated by the patient. Denies symptoms of nausea or vomiting. OBJECTIVE: VITAL SIGNS: For the patient, which has been recorded showed the temperature recorded as normal, respiratory rate of 18, heart rate 94, blood pressure 132/72. The pulse oxygen saturation recorded as 94% saturation at rest on room air. HEENT: Examination shows head was atraumatic. Eyes nonicterus. NECK: Supple. CARDIOVASCULAR: S1, S2 is audible. LUNGS: The patient was noted without any wheeze or crackles. ABDOMEN: Soft, nontender. Bowel sounds present. EXTREMITIES: Noted without any acute edema. MUSCULOSKELETAL: The patient was noted without any acute deformities. IMPRESSION: 1. The patient with progressive resolution of acute bronchial asthma exacerbation, failed outpatient treatment for obstructive sleep apnea disorder. 2. Congestive heart failure. 3. Morbid obesity. 4. History of sarcoidosis. PLAN OF TREATMENT: The patient could be considered from discharge at this time, no change in the treatment would be recommended. Otherwise, tapering dose of prednisone and antibiotic could be used upon discharge with outpatient follow up to be established post-discharge. [place], [place] PROGRESS NOTE NAME: AHMET LICEA UNIT #: [id number] ROOM: 416 DOCTOR: SAMANTA MOTLEY MD BIRTHDATE: [birth year] SAMANTA JOHNSON MD CM:PNTRANS [phone] SAMANTA BERTRAND MD 03/16/19 0237 interface
--- NOTE | ~2019-03-13 | EKG ---
[place], [place] ELECTROCARDIOGRAM REPORT NAME: AHMET LICEA UNIT #: [id number] ROOM: 416 DOCTOR: VIC DRAFT REPORT BIRTHDATE: [birth year] [facility] Test Date: 2019-03-13 Test Time: 12:43:01 Pat Name: AHMET LICEA Department: Room: 416 Gender: F [employer]ting [employer] Supervisor: : 1955 Requested By: JOANNA BURNHAM PA-C Order Number: [id number] Reading MD: Tyree Fox MD Measurements Intervals [place] Rate: 73 P: 54 RI: 182 QRS: 8 QRSD: 95 T: 34 QT: 372 QTc: 410 Interpretive Statements Sinus rhythm Low voltage, precordial leads Baseline wander in lead(s) II,III,aVF Compared to ECG 11/11/2018 14:01:07 No significant changes Electronically Signed On 03-14-2019 15:53:03 PDT by Tyree Fox MD CM:EKGRPT:ELECTROCARDIOGRAM REPORT [id number] 1553 JOANNA BURNHAM PA-C EPIPHANY DRAFT REPORT JOANNA BURNHAM PA-C
--- NOTE | ~2019-03-13 | PR ---
[place], [place] PROGRESS NOTE NAME: AHMET LICEA UNIT #: [id number] ROOM: 416 DOCTOR: ELIZABETH BERTRAND MD,SAMANTA BIRTHDATE: [birth year] DOS: 03/14/2019 PULMONARY PROGRESS NOTE SUBJECTIVE: The patient was independently seen and examined, including [id number] encounter, history was confirmed. Physical examination performed. Labs reviewed. Assessment and management of today visit were personally completed. Note done by the medical observer approved. The patient has been noted with partial reduction in symptoms of shortness of breath, cough. The patient's coughing has been noted small amount of sputum expectoration. The patient stated that she has used her own CPAP from home last night. Denies symptoms of chest pain, fever or chills. Other symptom of the patient noted on partially improved from yesterday examination and assessment. Remaining system of the patient reviewed noted as negative. PHYSICAL EXAMINATION: VITAL SIGNS: For the patient which were recorded this morning, normal temperature, respiratory rate 20, heart rate 84, blood pressure 146/70. Pulse oxygen saturation rested room air 94% saturation. HEENT: Head was atraumatic. Eyes nonicterus. NECK: Supple. CARDIOVASCULAR: S1, S2 is audible. LUNGS: The patient was noted with decreased breath sounds in the lung with expiratory wheezing, no crackles. ABDOMEN: Soft and obese. EXTREMITIES: The patient was noted with chronic obesity findings. Edema of the lower extremity noted partially decreased. MUSCULOSKELETAL: Without any acute deformities. CENTRAL NERVOUS SYSTEM: Intact grossly. VISIBLE SKIN: Without any lesions or rashes. LABORATORY DATA: BMP today, BUN 29, creatinine normal, glucose 125. CBC this morning: WBC count 12.4, hemoglobin and hematocrit normal, and platelet count was normal. IMPRESSION: 1. The patient has been currently noted with acute exacerbation of bronchial asthma, failed outpatient treatment ____ obstructive sleep apnea disorder. 2. Congestive heart failure at this time treated with diuretics. 3. Morbid obesity. 4. History of sarcoidosis. PLAN OF MANAGEMENT: Continuation of the current therapy, plan of management as outlined with the corticosteroids, bronchodilators, CPAP/BiPAP from home oxygen supplementation if needed to maintain pulse ox 92% or greater. Other additional treatment changes will be made based on progression of the illness. [place], [place] PROGRESS NOTE NAME: AHMET LICEA Francis UNIT #: [id number] ROOM: 416 DOCTOR: SAMANTA MOTLEY MD BIRTHDATE: [birth year] SAMANTA JOHNSON MD CM:JANINE [phone] SAMANTA BERTRAND MD 03/15/19 0608 interface
--- NOTE | ~2019-03-13 | PR ---
[place], [place] PROGRESS NOTE NAME: AHMET LICEA UNIT #: [id number] ROOM: 416 DOCTOR: ELIZABETH BERTRAND MD,SAMANTA BIRTHDATE: [birth year] DOS: 03/16/2019 PULMONARY PROGRESS NOTE SUBJECTIVE: The patient noted comfortable at this time, resting on the bed, has not been reporting any ongoing acute new respiratory complaint this morning of assessment. Shortness of breath symptom has been improving and feeling that she could be discharged home today. OBJECTIVE: VITAL SIGNS: This morning, the patient is resting comfortably on the chair this morning, has a normal temperature, respiratory rate 20, heart rate of 96, blood pressure 102/50. Pulse oxygen saturation recorded as 95% saturation on room air. HEENT: Examination shows head was atraumatic. Eyes nonicterus. NECK: Supple. CARDIOVASCULAR: S1, S2 is audible. LUNGS: Without any wheezing or crackles at the present time. ABDOMEN: Soft, nontender. Bowel sounds are present. EXTREMITIES: The patient was noted without any acute edema. IMPRESSION: 1. The patient with stable respiratory status was noted at the present time responding to current treatment with significant improvement noted, acute exacerbation of bronchial asthma and acute bronchitis. 2. History of obstructive sleep apnea disorder. PLAN OF MANAGEMENT: The patient could be considered for home discharge today by the primary care team. Tapering prednisone and bronchodilators, antibiotic would be recommended. Other additional treatment changes will be made based on the progression of the illness. SAMANTA JOHNSON MD CM:PNTRANS [phone] SAMANTA BERTRAND MD 03/17/19 0122 interface
--- NOTE | ~2019-03-13 | PR ---
[place], [place] PROGRESS NOTE NAME: AHMET LICEA UNIT #: [id number] ROOM: 416 DOCTOR: THERESA ROSSICARTERDONTE BIRTHDATE: [birth year] DOS: 03/14/2019 PULMONARY PROGRESS NOTE INTERVAL HISTORY OF PRESENT ILLNESS: The patient was seen last night. The patient states that she feels much better this morning. The patient states that she is still short of breath; however, with any activity. The patient brought her CPAP in from home. The patient knows that she should use this as much as possible. OBJECTIVE: VITAL SIGNS: Temperature 97.7, pulse 78, respiratory rate 18, blood pressure 118/52, pulse ox 93 on room air. HEENT: Normocephalic, atraumatic. NECK: Supple, nontender, trachea midline. CARDIOVASCULAR: S1, S2 audible. LUNGS: Bilateral diffuse expiratory wheezes. ABDOMEN: Obese, bowel sounds present, nontender. EXTREMITIES: 2+ bilateral lower extremity edema. SKIN: No visible lesions. NEUROLOGIC: Cranial nerves 2-12 grossly intact. No focal neurologic deficit. MUSCULOSKELETAL: Without acute deformities. LABORATORY DATA: ABG was performed last night showing pH 7.38, pCO2 of 35.4, pO2 of 63.2, bicarbonate of 20.7. ASSESSMENT: 1. Acute exacerbation of bronchial asthma, failed outpatient treatment. 2. Obstructive sleep apnea, nonadherence with treatment at home. 3. Congestive heart failure. 4. Morbid obesity. 5. History of sarcoidosis. 6. Diabetes. PLAN: The patient agrees to use CPAP or BiPAP from home at nighttime. She is continued on Solu-Medrol. The patient was also started on diuretic 40 mg IV Lasix per day. The patient's last echo shows left ventricular function was normal. Grade 1 abnormal relaxation pattern. The echo was performed in October of this year. Any additional changes will be based on progression of illness. Thank you for allowing us to participate in the patient's care. Robert Cline DO [place], [place] PROGRESS NOTE NAME: AHMET LICEA UNIT #: [id number] ROOM: 416 DOCTOR: SHANNAN CLINE DO BIRTHDATE: [birth year] SAMANTA JOHNSON MD CM:JANINE [phone] SHANNAN CLINE DO 03/14/19 1545 interface
--- NOTE | ~2019-03-13 | EKG ---
[place], [place] ELECTROCARDIOGRAM REPORT NAME: AHMET LICEA UNIT #: [id number] ROOM: 416 DOCTOR: EPIPHANY DRAFT REPORT BIRTHDATE: [birth year] [facility] Test Date: 2019-03-13 Test Time: 16:34:39 Pat Name: AHMET LICEA Department: Room: 416 2 Gender: F Valve Assembler: Nirmala Quijano : 1955 Requested By: MAK ROMANO Order Number: [id number] Reading MD: Tyree Fox MD Measurements Intervals [place] Rate: 76 P: 64 DE: 180 QRS: 9 QRSD: 99 T: 23 QT: 348 QTc: 392 Interpretive Statements Sinus rhythm Low voltage, precordial leads Compared to ECG 11/11/2018 14:01:07 No significant changes Electronically Signed On 03-14-2019 15:53:06 PDT by Tyree Fox MD CM:EKGRPT:ELECTROCARDIOGRAM REPORT [id number] 1553 MAK ROMANO EPIPHANY DRAFT REPORT MAK ROMANO
[~2019-03-13 11:24] MED LIST: ALDACTONE50 M1 PO; CIPRO500 MG PO; GABAPENTIN400 MG PO; IRON325 M1 PO; LEVOTHYROXINE150 MCG PO; LOSARTAN POTAS100 M1 PO; MAGNESIUM OXID400 MG PO; MELOXICAM15 MG PO; METFORMIN HYDR500 MG PO; PROPRANOLOL HCL10 MG PO; Percocet 325 MG1 TAB PO; ROBITUSSIN DM 101 OZ PO; ROPINIROLE HYDRO3 MG PO; SERTRALINE HYD100 MG PO; TOPIRAMATE50 M2 PO; TRAZODONE100 MG PO; Ventolin 02.5 MG/3 M INH
[2019-03-13] MEDS ORDERED: CELECOXIB200 M1 PO (12:06)
[2019-03-13] MEDS ORDERED: Ipratropium Brom3 ML INH (12:08)
[2019-03-13] MEDS ORDERED: ADVAIR 250/501 EA INH (12:09)
[2019-03-13] MEDS ORDERED: PERCOCET 5-3251 EACH PO (12:12)
[2019-03-13] MEDS ORDERED: LASIX20 MG PO (12:12)
[2019-03-13] MEDS ORDERED: PREDNISONE10 MG PO (12:15)
[2019-03-13] MEDS ORDERED: PROZAC10 MG PO (12:15)
[2019-03-13 12:39] LABS: BASO % 0.2 % (0.0-1.0); EOS % 0.1 % (1.0-4.0); HEMATOCRIT 41.9 % (37.0-47.0); HEMOGLOBIN 13.5 g/dl (12.0-16.0); LYMPH # 1.6 10*3/uL (1.3-4.4); LYMPH % 12.7 % (27.0-41.0); MEAN CELL VOLUME 94.4 fl (81.0-99.0); MEAN CORPUSCULAR HGB 30.4 pg (27.0-31.0); MEAN CORPUSCULAR HGB CONC 32.2 g/dl (33.0-37.0); MEAN PLATELET VOLUME 10.5 fl (9.6-12.3); MONO # 0.7 10*3/uL (0.1-1.0); MONO % 5.5 % (3.0-9.0); NEUT # 10.3 10*3/uL (2.3-7.9); NEUT % 80.6 % (47.0-73.0); PLATELET COUNT AUTOMATED 218 10*3/uL (130-400); RED BLOOD COUNT 4.44 10*6/uL (4.10-5.10); RED CELL DISTRI WIDTH 13.5 % (0-14.5); WHITE BLOOD COUNT 12.8 10*3/uL (4.8-10.8)
[2019-03-13 12:49] LABS: INTERNATIONAL NORM RATIO 0.9 (2.0-3.5)
[2019-03-13 12:56] LABS: ALBUMIN 3.5 gm/dl (3.1-4.5); ALKALINE PHOSPHATASE 53 U/L (45-117); BUN 29 mg/dl (7-24); CHLORIDE 110 mmol/L (98-107); CREATININE 1.07 mg/dL (0.55-1.02); POTASSIUM 4.5 mmol/L (3.5-5.1); SGOT/AST 21 IU/L (3-35); SGPT/ALT 41 U/L (12-78); SODIUM 143 mmol/L (136-145); TOTAL PROTEIN 7.6 gm/dL (6.4-8.2)
[2019-03-13 12:58] LABS: TROPONIN I < 0.015 ng/ml (<0.045)
--- NOTE | 2019-03-13 13:06 | NUR ---
PATIENT STILL HAS WHEEZING BUT IMPROVED AFTER TREATMENT
--- NOTE | 2019-03-13 16:20 | NUR ---
A 64, admitted to 4E, under the services of XOCHITL Villa DO with a diagnosis of COPD Chief complaint is SOB, COUGH . Patient arrived via stretcher from ER. Monitor applied. Initial assessment completed. Vital signs taken and recorded. XOCHITL VILLA DO notified of admission to the unit. Orders received. See assessment for past medical history, medications and allergies. Patient and/or family oriented to unit. [facility] visitation policy reviewed. Clothing/patient valuable form completed. ELIAZAR DICKSON
--- NOTE | 2019-03-13 16:54 | NUR ---
DR JOHNSON AND THERESA SAW PT FOR CONSULT
[2019-03-13 17:38] LABS: ABG BASE EXCESS -3.6 mmol/L (-2.0-2.0); ABG HCO3 20.7 mmol/l (22-26); ABG O2 SATURATION 93.3 % (95-97); ARTERIAL BLOOD GAS PCO2 35.4 mmHg (35-45); ARTERIAL BLOOD GAS PH 7.38 (7.35-7.45); ARTERIAL BLOOD GAS PO2 63.2 mmHg (80-90)
--- NOTE | 2019-03-13 18:26 | NUR ---
SPOKE WITH DR CARDENAS REGARDING ABGS
[2019-03-13] MEDS ORDERED: PROAIR HFA8.5 GM INH (19:08)
--- NOTE | 2019-03-13 20:19 | NUR ---
1949 RESTING IN BED TALKING WITH VISITOR. HEP LOCK'S INTACT X'S 2 LA. PULSE OX 95% ON RA. EXP WHEEZE NOTED. SEGUNDO. NO DISTRESS NOTED.
--- NOTE | 2019-03-13 22:14 | NUR ---
SEGUNDO. RESTING IN BED WATCHING TV.
--- NOTE | 2019-03-13 23:28 | NUR ---
DR SORIANO MADE AWARE OF PATIENT C/O RESTLESS LEGS. ALSO MADE AWARE OF HOME MEDICATIONS NOT BEING ORDERED YET
--- NOTE | 2019-03-13 23:45 | NUR ---
DR SORIANO AWARE OF PATIENT REQUESTING SOMETHING FOR PAIN.
[2019-03-14] VITALS: BP 118/52
--- NOTE | 2019-03-14 00:42 | NUR ---
MEDICATED WITH TYLENOL PER ORDER. PATIENT STATES "I DID NOT GET ANY OF MY ARTHRITIS MEDICINE YESTERDAY, THIS TYLENOL WILL NOT HELP ME.". BED IN LOWEST POSITION, CALL LIGHT IN REACH
--- NOTE | 2019-03-14 05:28 | NUR ---
GEOVANNY LICEASamson Blanco [id number] Please refer to the physician's history and physical for past medical history, comorbid conditions, and allergies. Diagnosis: COPD EXACERBATION Noe Score: 19,LOW OR NO RISK WOUND DESCRIPTIONS: Wound Number: 1 Location of the wound: right arm Type of wound: skin tear Thickness: Partial Size: 2.2cm x 0.4cm x 0.1cm Tunneling: none Undermining: none Sinus Tract: none Presence of Exudate: none Amount: None Color: Red Odor: None Periwound Skin Appearance: Normal Wound edges: approximated Pain (associated with wound): none at time of assessment How does patient state this happened? pt stated that she hit it off of the door at the doctors office yesterday Surface the patient is resting on: Position Pro SKIN PREVENTION RECOMMENDATION: 1. Pressure redistribution support surface as appropriate 2. Elevate heels 3. Remove boots/TEDS every shift and reapply 4. Head of bed 30 degrees as tolerated 5. Assess nutrition and hydration 6. Manage moisture 7. Avoid the use of containment devices while in bed 8. Use absorptive products on surfaces limit layers of linens on bed 9. Turn and reposition every 1-2 hours in bed and every 1 hour in chair as tolerated 10. Weight shifts every 15 minutes while up in chair 11. Offloading with pillows or device to keep heels elevated off bed 12. Monitor skin at least every shift 13. Inspect under medical devices twice a day WOUND TREATMENT RECOMMENDATIONS: Skin tear guidelines: cleanse right arm with nss and apply sureprep around the wound hydrogel to wound bed and cover with large bandaid. Patient states she will care for this area at home upon discharge.
[2019-03-14 06:37] LABS: BASO % 0.2 % (0.0-1.0); HEMATOCRIT 41.6 % (37.0-47.0); HEMOGLOBIN 13.3 g/dl (12.0-16.0); LYMPH # 1.2 10*3/uL (1.3-4.4); LYMPH % 9.5 % (27.0-41.0); MEAN CELL VOLUME 94.1 fl (81.0-99.0); MEAN CORPUSCULAR HGB 30.1 pg (27.0-31.0); MEAN PLATELET VOLUME 11.2 fl (9.6-12.3); MONO # 0.4 10*3/uL (0.1-1.0); MONO % 3.2 % (3.0-9.0); NEUT # 10.7 10*3/uL (2.3-7.9); NEUT % 86.2 % (47.0-73.0); PLATELET COUNT AUTOMATED 220 10*3/uL (130-400); RED BLOOD COUNT 4.42 10*6/uL (4.10-5.10); RED CELL DISTRI WIDTH 13.5 % (0-14.5); WHITE BLOOD COUNT 12.4 10*3/uL (4.8-10.8)
[2019-03-14 07:05] LABS: BUN 29 mg/dl (7-24); CHLORIDE 106 mmol/L (98-107); SODIUM 141 mmol/L (136-145)
[2019-03-14 07:16] LABS: CHOLESTEROL 122 mg/dL (<200); CREATININE 1.01 mg/dL (0.55-1.02); HDL CHOLESTEROL 70 mg/dl (40-60); LDL CHOLESTEROL 35 mg/dL (9-159); PHOSPHOROUS 3.9 mg/dL (2.5-4.9); THYROID STIM HORMONE (HS) 0.087 uIU/ml (0.358-4.75); TRIGLYCERIDES 85 mg/dl (<150); VLDL CHOLESTEROL 17 mg/dL (6-40)
[2019-03-14 08:00] VITALS: BP 146/70
--- NOTE | 2019-03-14 08:05 | NUR ---
Dr. Jules notified of wound care recommendations.
[2019-03-14 08:17] LABS: VITAMIN D, 25-HYDROXY 22.9 ng/mL (30-100)
--- NOTE | 2019-03-14 09:00 | NUR ---
Water Proofer in to talk to patient. Patient states lives at home with son. There are few steps in the home. Physician: sandoval bonds Pharmacy: [facility] services: none Patient's level of ADLs: INDEPENDENT Patient has working utilities: all working DME: cane, cpap Follow-up physician's appointment after d/c: will be made by hospitalist nurse director upon discharge Does patient want to access PORTAL?: no Discharge plan discussed with patient, patient live at home with son, she states she is independent in adls and ambulation, she has a cane but rarely uses it, drives, patient states she will be going home when able and denies any home needs. AARON MILLER
[2019-03-14 12:00] VITALS: BP 127/62
--- NOTE | 2019-03-14 12:36 | NUR ---
PATIENT SITTING UP IN CHAIR AT THIS TIME RECEIVED SCHEDULED BREATHING TREATMENT. PATIENT DENIES ANY COMPLAINTS AT THIS TIME. 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 CALL LIGHT IS WITHIN REACH. NO S/S OF DISTRESS.
[2019-03-14 15:49] VITALS: BP 127/55
[2019-03-14 20:00] VITALS: BP 140/70
--- NOTE | 2019-03-14 20:00 | NUR ---
24 HOUR CHART CHECK COMPLETE.
--- NOTE | 2019-03-14 20:13 | NUR ---
PRN TYLENOL ADMINISTERED PRESCRIBED. WILL CONTINUE TO MONITOR THE PT AND REASSESS IN AN HOUR.
--- NOTE | 2019-03-14 20:38 | NUR ---
PT STATES "HEADACHE EASED UP". TYLENOL EFFECTIVE.
[2019-03-15] VITALS: BP 110/47
--- NOTE | 2019-03-15 04:43 | NUR ---
PRN TYLENOL ADMINISTERED PRESCRIBED FOR PT COMPLAINT OF HEADACHE RATED A NINE ON THE PAIN SCALE. WILL CONTINUE TO MONITOR THE PT AND REASSESS IN AN HOUR.
--- NOTE | 2019-03-15 05:30 | NUR ---
PT STATED HER HEADACHE "EASED UP". TYLENOL & ICE PACK WERE EFFECTIVE.
[2019-03-15 06:08] LABS: HEMATOCRIT 42.1 % (37.0-47.0); HEMOGLOBIN 13.4 g/dl (12.0-16.0); LYMPH # 1.1 10*3/uL (1.3-4.4); MEAN CELL VOLUME 93.8 fl (81.0-99.0); MEAN CORPUSCULAR HGB 29.8 pg (27.0-31.0); MEAN CORPUSCULAR HGB CONC 31.8 g/dl (33.0-37.0); MEAN PLATELET VOLUME 11.2 fl (9.6-12.3); MONO # 0.4 10*3/uL (0.1-1.0); MONO % 3.1 % (3.0-9.0); NEUT # 10.2 10*3/uL (2.3-7.9); NEUT % 87.1 % (47.0-73.0); PLATELET COUNT AUTOMATED 230 10*3/uL (130-400); RED BLOOD COUNT 4.49 10*6/uL (4.10-5.10); RED CELL DISTRI WIDTH 13.9 % (0-14.5); WHITE BLOOD COUNT 11.7 10*3/uL (4.8-10.8)
[2019-03-15 06:23] LABS: BUN 33 mg/dl (7-24); CHLORIDE 108 mmol/L (98-107); CREATININE 1.02 mg/dL (0.55-1.02); POTASSIUM 4.2 mmol/L (3.5-5.1); SODIUM 141 mmol/L (136-145)
[2019-03-15 08:35] VITALS: BP 152/64
[2019-03-15 11:53] VITALS: BP 132/72
[2019-03-15 15:33] VITALS: BP 154/80
[2019-03-15 20:00] VITALS: BP 121/69
--- NOTE | 2019-03-15 20:15 | NUR ---
24 HOUR CHART CHECK COMPLETE.
[2019-03-16] VITALS: BP 135/60
--- NOTE | 2019-03-16 05:30 | NUR ---
ADMINISTERED PRN TYLENOL PRESCRIBED FOR PT COMPLAINT OF CLAIRE RATED A 6/10. WILL CONTINUE TO MONITOR THE PT AND REASSESS IN AN HOUR. .
--- NOTE | 2019-03-16 06:19 | NUR ---
PT STATES HER "HEAD FEELS MUCH BETTER".
[2019-03-16 06:30] LABS: BASO % 0.1 % (0.0-1.0); HEMATOCRIT 41.7 % (37.0-47.0); HEMOGLOBIN 13.3 g/dl (12.0-16.0); LYMPH # 1.5 10*3/uL (1.3-4.4); LYMPH % 11.6 % (27.0-41.0); MEAN CELL VOLUME 94.1 fl (81.0-99.0); MEAN CORPUSCULAR HGB CONC 31.9 g/dl (33.0-37.0); MEAN PLATELET VOLUME 10.9 fl (9.6-12.3); MONO # 0.6 10*3/uL (0.1-1.0); MONO % 4.7 % (3.0-9.0); NEUT # 10.6 10*3/uL (2.3-7.9); NEUT % 82.6 % (47.0-73.0); PLATELET COUNT AUTOMATED 215 10*3/uL (130-400); RED BLOOD COUNT 4.43 10*6/uL (4.10-5.10); RED CELL DISTRI WIDTH 14.2 % (0-14.5); WHITE BLOOD COUNT 12.8 10*3/uL (4.8-10.8)
[2019-03-16 06:53] LABS: BUN 35 mg/dl (7-24); CHLORIDE 108 mmol/L (98-107); CREATININE 1.04 mg/dL (0.55-1.02); POTASSIUM 4.5 mmol/L (3.5-5.1); SODIUM 142 mmol/L (136-145)
[2019-03-16 08:00] VITALS: BP 102/50
--- NOTE | 2019-03-16 08:30 | NUR ---
Patient resting quietly with no c/o discomfort. Respirations easy and regular. Vital signs stable. No overt distress. MICAH LAYNE R
[2019-03-16 12:00] VITALS: BP 148/62
[2019-03-16] MEDS ORDERED: PREDNISONE50 MG PO (13:46)
[2019-03-16] MEDS ORDERED: VIBRAMYCIN100 MG PO (13:46)
[2019-03-16] MEDS ORDERED: CELECOXIB200 M1 PO (13:46)
--- NOTE | 2019-03-16 15:14 | NUR ---
Discharge instructions reviewed with patient/family. Patient receptive and verbalizes understanding. Follow-up care arranged. Written instructions given to patient/family. MICAH LAYNE
[2019-05-04] MEDS ORDERED: MEDROL DOSEPAK4 MG PO (18:01)
== END 2019-03-16 15:14 | disposition home or self-care (01) | DRG 871 ==
LOC: ED 11:24 → 4E 14:27 → EDHOLD 14:27 → 4E 15:18
PROVIDERS: Family Medicine; Internal Medicine; Physician Assistant; ADMIT Internal Medicine
DX: A41.9 Sepsis, unspecified organism (principal); J18.9 Pneumonia, unspecified organism; J44.1 Chronic obstructive pulmonary disease with (acute) exacerbation; J44.0 Chronic obstructive pulmonary disease with (acute) lower respiratory infection; I13.0 Hypertensive heart and chronic kidney disease with heart failure and stage 1 through stage 4 chronic kidney disease, or unspecified chronic kidney disease; J45.41 Moderate persistent asthma with (acute) exacerbation; E87.8 Other disorders of electrolyte and fluid balance, not elsewhere classified; J20.9 Acute bronchitis, unspecified; G47.33 Obstructive sleep apnea (adult) (pediatric); D86.9 Sarcoidosis, unspecified; K21.9 Gastro-esophageal reflux disease without esophagitis; M46.82 Other specified inflammatory spondylopathies, cervical region; E55.9 Vitamin D deficiency, unspecified; Z96.651 Presence of right artificial knee joint; G25.81 Restless legs syndrome; E78.00 Pure hypercholesterolemia, unspecified; N18.3 Chronic kidney disease, stage 3 (moderate); G43.909 Migraine, unspecified, not intractable, without status migrainosus; F41.1 Generalized anxiety disorder; F32.9 Major depressive disorder, single episode, unspecified; E03.9 Hypothyroidism, unspecified; G89.29 Other chronic pain; K59.00 Constipation, unspecified; G47.00 Insomnia, unspecified; M94.0 Chondrocostal junction syndrome [Tietze]; E11.65 Type 2 diabetes mellitus with hyperglycemia; E66.01 Morbid (severe) obesity due to excess calories; E11.22 Type 2 diabetes mellitus with diabetic chronic kidney disease; Z88.5 Allergy status to narcotic agent; Z88.8 Allergy status to other drugs, medicaments and biological substances; Z82.49 Family history of ischemic heart disease and other diseases of the circulatory system; Z83.3 Family history of diabetes mellitus; Z79.899 Other long term (current) drug therapy; Z80.8 Family history of malignant neoplasm of other organs or systems; I50.9 Heart failure, unspecified

== ENCOUNTER 2020-08-15 12:28 | Inpatient (IN) | payer OTHER ==
[~2020-08-15] VITALS: Ht 170.1 cm; Wt 126.7 kg
[~2020-08-15 12:28] MED LIST changes: +ADVAIR 250/501 EA INH; +CELECOXIB200 M1 PO; +Ipratropium Brom3 ML INH; +LASIX20 MG PO; +MEDROL DOSEPAK4 MG PO; +PERCOCET 5-3251 EACH PO; +PREDNISONE10 MG PO; +PREDNISONE50 MG PO; +PROAIR HFA8.5 GM INH; +PROZAC10 MG PO; +VIBRAMYCIN100 MG PO
[2020-08-15 12:38] VITALS: BP 147/88
[2020-08-15 13:16] LABS: BASO % 0.4 % (0.0-1.0); EOS # 0.2 10*3/uL (0.0-0.4); EOS % 1.7 % (1.0-4.0); HEMATOCRIT 42.6 % (37.0-47.0); LYMPH % 29.4 % (27.0-41.0); MEAN CELL VOLUME 94.9 fl (81.0-99.0); MEAN CORPUSCULAR HGB 29.8 pg (27.0-31.0); MEAN CORPUSCULAR HGB CONC 31.5 g/dl (33.0-37.0); MEAN PLATELET VOLUME 10.2 fl (9.6-12.3); MONO # 0.7 10*3/uL (0.1-1.0); MONO % 6.6 % (3.0-9.0); NEUT # 6.2 10*3/uL (2.3-7.9); NEUT % 61.2 % (47.0-73.0); PLATELET COUNT AUTOMATED 208 10*3/uL (130-400); RED BLOOD COUNT 4.49 10*6/uL (4.10-5.10); WHITE BLOOD COUNT 10.2 10*3/uL (4.8-10.8)
[2020-08-15 13:29] LABS: ACT PARTIAL THROMBO TIME 24.5 SECONDS (20.0-32.1)
[2020-08-15 13:32] LABS: ALBUMIN 3.4 gm/dl (3.1-4.5); ALKALINE PHOSPHATASE 61 U/L (45-117); BUN 25 mg/dl (7-24); CHLORIDE 111 mmol/L (98-107); CREATININE 1.04 mg/dL (0.55-1.02); POTASSIUM 3.6 mmol/L (3.5-5.1); SGOT/AST 34 IU/L (3-35); SGPT/ALT 50 U/L (12-78); SODIUM 144 mmol/L (136-145); TOTAL PROTEIN 7.7 gm/dL (6.4-8.2)
[2020-08-15 13:35] LABS: TROPONIN I < 0.015 ng/ml (<0.045)
[2020-08-15] MEDS ORDERED: MELOXICAM15 MG PO (14:16)
[2020-08-15] MEDS ORDERED: VITAMIN D3250 MC2 PO (14:19)
[2020-08-15] MEDS ORDERED: AMOXICILLIN875 MG PO (14:23)
[2020-08-15 15:06] VITALS: BP 121/98
[2020-08-15 20:00] VITALS: BP 138/55
[2020-08-16] VITALS: BP 116/51
[2020-08-16 06:46] LABS: BASO % 0.1 % (0.0-1.0); HEMATOCRIT 42.4 % (37.0-47.0); LYMPH # 0.8 10*3/uL (1.3-4.4); LYMPH % 7.4 % (27.0-41.0); MEAN CELL VOLUME 94.2 fl (81.0-99.0); MEAN CORPUSCULAR HGB 29.6 pg (27.0-31.0); MEAN CORPUSCULAR HGB CONC 31.4 g/dl (33.0-37.0); MEAN PLATELET VOLUME 10.7 fl (9.6-12.3); MONO # 0.3 10*3/uL (0.1-1.0); MONO % 2.6 % (3.0-9.0); NEUT # 9.7 10*3/uL (2.3-7.9); PLATELET COUNT AUTOMATED 215 10*3/uL (130-400); RED CELL DISTRI WIDTH 13.9 % (0-14.5); WHITE BLOOD COUNT 10.9 10*3/uL (4.8-10.8)
[2020-08-16 07:07] LABS: ALBUMIN 3.2 gm/dl (3.1-4.5); BUN 23 mg/dl (7-24); CHLORIDE 110 mmol/L (98-107); CHOLESTEROL 113 mg/dL (<200); CREATININE 1.06 mg/dL (0.55-1.02); HDL CHOLESTEROL 68 mg/dl (40-60); LDL CHOLESTEROL 28 mg/dL (9-159); POTASSIUM 4.1 mmol/L (3.5-5.1); SGOT/AST 25 IU/L (3-35); SGPT/ALT 55 U/L (12-78); SODIUM 142 mmol/L (136-145); TOTAL PROTEIN 7.5 gm/dL (6.4-8.2); TRIGLYCERIDES 84 mg/dl (<150); VLDL CHOLESTEROL 17 mg/dL (6-40)
[2020-08-16 07:10] LABS: ACT PARTIAL THROMBO TIME 24.7 SECONDS (20.0-32.1); VITAMIN D, 25-HYDROXY 34.4 ng/mL (30-100)
[2020-08-16 07:12] LABS: ALKALINE PHOSPHATASE 61 U/L (45-117); FREE T4 1.36 ng/dl (0.76-1.46); THYROID STIM HORMONE (HS) 0.148 uIU/ml (0.358-4.75)
[2020-08-16 08:00] VITALS: BP 112/62
[2020-08-16 12:00] VITALS: BP 142/81
[2020-08-16 16:00] VITALS: BP 116/58
[2020-08-16 20:00] VITALS: BP 113/58; BP 122/61
[2020-08-17] VITALS: BP 137/76
[2020-08-17 08:00] VITALS: BP 134/64
[2020-08-17 12:00] VITALS: BP 144/74
[2020-08-17 16:00] VITALS: BP 135/74
[2020-08-17 20:00] VITALS: BP 114/65
[2020-08-18] VITALS: BP 124/57
[2020-08-18 08:00] VITALS: BP 133/65
[2020-08-18] MEDS ORDERED: DOXYCYCLINE100 M3 PO (09:50)
[2020-08-18] MEDS ORDERED: PROTONIX40 MG PO (09:50)
[2020-08-18] MEDS ORDERED: PREDNISONE10 MG PO (09:50)
== END 2020-08-18 11:22 | disposition home or self-care (01) | DRG 191 ==
LOC: ED 12:28 → EDHOLD 13:55 → 4E 13:55
PROVIDERS: Emergency Medicine; Hospitalist; ADMIT Emergency Medicine; ATTEND Emergency Medicine
DX: J44.1 Chronic obstructive pulmonary disease with (acute) exacerbation (principal); J45.901 Unspecified asthma with (acute) exacerbation; Z68.41 Body mass index [BMI] 40.0-44.9, adult; D86.9 Sarcoidosis, unspecified; K21.9 Gastro-esophageal reflux disease without esophagitis; M79.7 Fibromyalgia; N18.31 Chronic kidney disease, stage 3a; E66.01 Morbid (severe) obesity due to excess calories; G47.33 Obstructive sleep apnea (adult) (pediatric); I12.9 Hypertensive chronic kidney disease with stage 1 through stage 4 chronic kidney disease, or unspecified chronic kidney disease; E11.22 Type 2 diabetes mellitus with diabetic chronic kidney disease; G25.81 Restless legs syndrome; G89.4 Chronic pain syndrome; E03.9 Hypothyroidism, unspecified; F51.01 Primary insomnia; M54.41 Lumbago with sciatica, right side; E83.41 Hypermagnesemia; E11.65 Type 2 diabetes mellitus with hyperglycemia; E87.8 Other disorders of electrolyte and fluid balance, not elsewhere classified; Z96.651 Presence of right artificial knee joint; F32.9 Major depressive disorder, single episode, unspecified; F41.1 Generalized anxiety disorder; Z88.8 Allergy status to other drugs, medicaments and biological substances; Z88.5 Allergy status to narcotic agent; Z87.01 Personal history of pneumonia (recurrent); Z83.3 Family history of diabetes mellitus; Z82.49 Family history of ischemic heart disease and other diseases of the circulatory system; Z79.899 Other long term (current) drug therapy

== ENCOUNTER 2020-09-16 12:36 | Emergency (ER) | payer OTHER ==
[~2020-09-16] VITALS: Ht 152.4 cm; Wt 126.1 kg
[~2020-09-16 12:36] MED LIST changes: +AMOXICILLIN875 MG PO; +DOXYCYCLINE100 M3 PO; +PROTONIX40 MG PO; +VITAMIN D3250 MC2 PO
[2020-09-16 14:37] LABS: BASO % 0.4 % (0.0-1.0); EOS # 0.1 10*3/uL (0.0-0.4); EOS % 1.5 % (1.0-4.0); HEMATOCRIT 44.1 % (37.0-47.0); LYMPH # 1.5 10*3/uL (1.3-4.4); LYMPH % 21.5 % (27.0-41.0); MEAN CELL VOLUME 96.3 fl (81.0-99.0); MEAN CORPUSCULAR HGB 29.9 pg (27.0-31.0); MEAN CORPUSCULAR HGB CONC 31.1 g/dl (33.0-37.0); MEAN PLATELET VOLUME 10.2 fl (9.6-12.3); MONO # 0.4 10*3/uL (0.1-1.0); NEUT # 4.8 10*3/uL (2.3-7.9); NEUT % 70.3 % (47.0-73.0); PLATELET COUNT AUTOMATED 233 10*3/uL (130-400); RED BLOOD COUNT 4.58 10*6/uL (4.10-5.10); RED CELL DISTRI WIDTH 14.2 % (0-14.5); WHITE BLOOD COUNT 6.9 10*3/uL (4.8-10.8)
[2020-09-16 14:55] LABS: ALBUMIN 3.3 gm/dl (3.1-4.5); ALKALINE PHOSPHATASE 60 U/L (45-117); BUN 19 mg/dl (7-24); CHLORIDE 109 mmol/L (98-107); CREATININE 0.94 mg/dL (0.55-1.02); LIPASE 62 U/L (73-393); SGOT/AST 27 IU/L (3-35); SGPT/ALT 40 U/L (12-78); SODIUM 142 mmol/L (136-145); TOTAL PROTEIN 7.8 gm/dL (6.4-8.2)
[2020-09-16 14:56] LABS: TROPONIN I < 0.015 ng/ml (<0.045)
[2020-09-16 14:56] LABS: BILIRUBIN Negative (Negative); BLOOD Negative (Negative); CLARITY Clear (Clear); COLOR Yellow (Yellow); GLUCOSE Negative (Negative); KETONE Negative (Negative); LEUKO ESTERASE Negative (Negative); NITRITE Negative (Negative); PH 7.5 (4.5-8.0); SPECIFIC GRAVITY 1.015 (1.001-1.030); UROBILINOGEN 0.2 E.U./dl (0.0-1.0)
[2020-09-16 15:15] LABS: BACTERIA TRACE; RBC 0-2 rbc/hpf (0-2); WBC 0-2 wbc/hpf (0-5)
[2020-09-16 15:31] LABS: ACT PARTIAL THROMBO TIME 25.6 SECONDS (20.0-32.1); INTERNATIONAL NORM RATIO 0.9 (2.0-3.5)
[2020-09-16] MEDS ORDERED: PREDNISONE20 M1 PO (15:35)
[2020-09-16] MEDS ORDERED: PROVENTIL HFA6.7 GM INH (15:35)
== END 2020-09-16 16:02 | disposition home or self-care (01) ==
LOC: ED 12:36
PROVIDERS: Physician Assistant
DX: J44.1 Chronic obstructive pulmonary disease with (acute) exacerbation (principal); Z88.8 Allergy status to other drugs, medicaments and biological substances; Z79.899 Other long term (current) drug therapy; Z88.5 Allergy status to narcotic agent; Z79.84 Long term (current) use of oral hypoglycemic drugs; Z79.2 Long term (current) use of antibiotics